=== PATIENT | male | born 1950 | race African-American/Black ===

== ENCOUNTER 2019-03-06 06:48 | Observation (INO) ==
[2019-03-06] MEDS ORDERED: ASPIRIN PO ONE (07:12)
--- NOTE | 2019-03-06 07:12 | PROVIDER DOCUMENTATION ---
HPI-Chest Pain - General Chief Complaint: Shortness of Breath Stated Complaint: SOB / SWELLING Time Seen by Provider: 03/06/19 07:03 Allergies/Adverse Reactions: Patient Allergies Allergy/AdvReac Type Severity Reaction Status Date / Time No Known Allergies Allergy Verified 10/03/18 06:54 Home Medications: Home Medication List Medication Instructions Recorded Confirmed Last Taken Type Metoprolol [Lopressor] 50 mg PO DAILY 04/24/17 03/06/19 10/03/18 06:00 History Atorvastatin Calcium [Lipitor] 80 mg PO DAILY 09/26/18 03/06/19 10/02/18 History Fluticasone/Vilanterol [Breo 1 inh INH DAILY 09/26/18 03/06/19 10/02/18 History Ellipta 200-25 Mcg INH] Losartan/Hydrochlorothiazide 1 dose PO DAILY 09/26/18 03/06/19 10/02/18 History [Losartan-Hctz 50-12.5 mg Tab] Multivitamin with Minerals [One 1 dose PO DAILY 09/26/18 03/06/19 10/02/18 History Daily Adults] Spironolactone 12.5 mg PO DIRECTED 09/26/18 03/06/19 10/02/18 History Albuterol Sulfate [Proair 1 dose INHALATION Q4HR 01/20/19 03/06/19 Unknown History Respiclick] Aspirin [Aspir-Low] 81 mg PO DAILY 01/20/19 03/06/19 Unknown History Pantoprazole Sodium [Protonix] 40 mg PO DAILY 01/20/19 03/06/19 Unknown History Sitagliptin Phosphate [Januvia] 100 mg PO DAILY 01/20/19 03/06/19 Unknown History Methylprednisolone [Medrol Dosepak] 1 tab PO DIRECTED 03/06/19 03/06/19 Unknown History Rivaroxaban [Xarelto] 1 tab PO DAILY 03/06/19 03/06/19 Unknown History - History of Present Illness-CP Nature of Presenting Problem: 68 y/o BM c/o CP and SOB since yesterday that is lt sided and radiates to his lt shoulder. Pt has hx of asthma, CHF and CAD. Pt also notes that he was told that he has blood clot in the lt side of his neck. He has taken nitro this am x2 that he states improved his CP. Location: reports: other (lt lower chest pain) Chest Pain Radiation: reports: no radiation Quality of Pain: reports: aching Severity in ED: mild Onset/Duration: 1-3 hours ago Timing: still present Context/Activities at Onset: reports: light activity Modifying Factors: improves with: movement Associated Symptoms: reports: shortness of breath Nitro Today/Relief: 0.4 mg x 2 (symptoms improved with nitro x2) Aspirin Treatment Today: no aspirin today, provided by ED Prior Chest Pain/Cardiac Workup: reports: heart attack Similar Symptoms Previously?: Yes Recently Seen Here or By Another Healthcare Provider: Yes Review of Systems - Adult - REVIEW OF SYSTEMS - ADULT Constitutional: reports: no symptoms reported, see HPI Eyes: reports: no symptoms reported, see HPI Ears, Nose, Mouth & Throat: reports: no symptoms reported, see HPI Cardiovascular: reports: see HPI, chest pain Respiratory: reports: see HPI, shortness of breath Gastrointestinal: reports: no symptoms reported, see HPI Genitourinary: reports: no symptoms reported, see HPI Musculoskeletal: reports: no symptoms reported, see HPI Integumentary: reports: no symptoms reported, see HPI Neurological: reports: no symptoms reported, see HPI Psychiatric: reports: no symptoms reported, see HPI Endocrine: reports: no symptoms reported, see HPI Hematologic/Lymphatic: reports: no symptoms reported, see HPI Allergic/Immunologic: reports: no symptoms reported, see HPI All Other Systems: Reviewed and Negative Past History - Adult - PAST MEDICAL HISTORY-ADULT Review of Records: reports: Nursing Assessment Review, Medications Reviewed, Social history reviewed & non-contributory. Major Childhood Illnesses: reports: denies history Cardiovascular: reports: CAD, HTN, hyperlipidemia, pacemaker Respiratory: reports: COPD Gastrointestinal: reports: denies history Obstetrical/Gynecological: reports: denies history Genitourinary: reports: denies history Musculoskeletal: reports: denies history Neurological: reports: denies history Endocrine/Immune: reports: Diabetes Other Conditions: reports: denies history - PRIOR SURGERIES/PROCEDURES Surgical/Procedure History: reports: CABG, pacemaker - IMMUNIZATION STATUS Childhood Immunizations: See Nurse Assessment Flu Vaccine: See Nurse Assessment - FAMILY HISTORY Family History: reviewed, not pertinent Physical Exam-General - PHYSICAL EXAM-ADULT Initial Vital Signs Reviewed: Yes - CONSTITUTIONAL General Appearance: appears well, alert, no apparent distress - EYES Eyes: PERRL/EOMI - HEAD, EARS, NOSE, MOUTH & THROAT HENMT: normocephalic/atraumatic, moist mucous membranes - NECK Neck: non-tender, full range of motion, supple, normal inspection - RESPIRATORY Respiratory: chest non-tender, lungs clear, normal breath sounds, no pleuratic chest pain, no respiratory distress, no accessory muscle use - CARDIOVASCULAR Cardiovascular: normal peripheral pulses, regular rate, rhythm, no edema, no gallop, no JVD, no murmur - GASTROINTESTINAL (ABDOMEN) Abdominal Exam: normal bowel sounds, non tender, soft, no organomegaly, no pulsatile mass - LYMPHATIC Lymphatic: no adenopathy - MUSCULOSKELETAL Back Exam: normal inspection, no CVA tenderness, no vertebral tenderness Extremity: normal range of motion, non-tender, normal gait, normal inspection, normal capillary refill - SKIN Integumentary: normal color - 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, grossly normal, no motor/sensory deficits - PSYCHIATRIC Psych/Mental Status: normal mood/affect, normal thought content, normal thought process, oriented x 3 - HEART Score HEART Score: History: Moderately Suspicious HEART Score: ECG: Non-Specific Repolarization Disturbance/LBBB/PM HEART Score: Age: > or = 65 Years HEART Score: Risk Factors for Atherosclerotic Disease: > or = 3 Risk Factors or History of Atherosclerotic Disease HEART Score: Troponin: < or = Normal Limit Total HEART Score:: 6 Progress - PLAN OF CARE/RESULTS Progress/Plan/Lab Results: Vital Signs - 8 hr 03/06/19 06:57 Temperature 98.6 F Pulse Rate 62 Respiratory Rate 26 H Blood Pressure 200/151 O2 Sat by Pulse Oximetry 95 Laboratory Results - last 24 hr 03/06/19 03/06/19 03/06/19 07:20 07:20 07:20 WBC 11.27 H RBC 4.09 L Hgb 11.7 L Hct 35.6 L MCV 87.0 MCH 28.6 MCHC 32.9 L RDW Std Deviation 13.2 Plt Count 227 MPV 10.8 H Immature Gran % (Auto) 0.4 Neut % (Auto) 68.7 Lymph % (Auto) 15.4 L Mayes % (Auto) 14.3 H Eos % (Auto) 1.0 Baso % (Auto) 0.2 Immature Gran # (Auto) 0.04 Neut # (Auto) 7.76 H Lymph # (Auto) 1.73 Mayes # (Auto) 1.61 H Eos # (Auto) 0.11 Baso # (Auto) 0.02 PT INR PTT (Actin FS) D-Dimer, Quantitative 0.51 Sodium Potassium Chloride Carbon Dioxide Anion Gap BUN Creatinine Estimated GFR/1.73 m2 BUN/Creatinine Ratio Glucose Calculated Osmolality Calcium Total Bilirubin AST ALT Alkaline Phosphatase Troponin T 0.012 Pnd-C-Haujzckuswh Pept Total Protein Albumin Globulin Albumin/Globulin Ratio 03/06/19 03/06/19 03/06/19 07:20 07:20 07:20 WBC RBC Hgb Hct MCV MCH MCHC RDW Std Deviation Plt Count MPV Immature Gran % (Auto) Neut % (Auto) Lymph % (Auto) Mayes % (Auto) Eos % (Auto) Baso % (Auto) Immature Gran # (Auto) Neut # (Auto) Lymph # (Auto) Mayes # (Auto) Eos # (Auto) Baso # (Auto) PT 19.4 H INR 1.56 PTT (Actin FS) 39.5 D-Dimer, Quantitative Sodium 138 Potassium 3.7 Chloride 101 Carbon Dioxide 23 L Anion Gap 14 BUN 10 Creatinine 1.1 Estimated GFR/1.73 m2 > 60 BUN/Creatinine Ratio 9 Glucose 196 H Calculated Osmolality 280 Calcium 8.6 L Total Bilirubin 1.40 H AST 23 ALT 28 Alkaline Phosphatase 96 Troponin T Edn-K-Daqcspqssfx Pept 4295 H Total Protein 6.4 Albumin 3.9 Globulin 3.0 Albumin/Globulin Ratio 2.0 Orders Category Date Time Status cxr [CHEST-1 VIEW] [RAD] Stat Exams 03/06/19 07:04 Completed CBC WITH ELECTRONIC DIFF [HEME] Stat Lab 03/06/19 07:20 Completed COMPREHENSIVE METABOLIC PANEL [CHEM] Stat Lab 03/06/19 07:20 Completed D-DIMER [COAG] Stat Lab 03/06/19 07:20 Completed PRO B-NATRIURETIC PEPTIDE Stat Lab 03/06/19 07:20 Completed PROTIME WITH INR [COAG] Stat Lab 03/06/19 07:20 Completed PTT [COAG] Stat Lab 03/06/19 07:20 Completed TROPONIN T Stat Lab 03/06/19 07:20 Completed Aspirin Med 03/06/19 07:12 Discontinued 325 mg PO NOW ONE Furosemide [Lasix] Med 03/06/19 08:32 Discontinued 40 mg .ROUTE .STK-MED ONE Furosemide [Lasix] Med 03/06/19 08:13 Discontinued 40 mg IV NOW ONE Nitroglycerin Sl [Nitroglycerin] Med 03/06/19 07:43 Discontinued 0.4 mg SL NOW ONE Oxygen Device Stat Oth 03/06/19 07:39 Active EKG [EKG] Stat Ther 03/06/19 07:04 Ordered Result Diagrams: 03/06/19 07:20 03/06/19 07:20 - CONSULTS/PCP/HOSPITALIST Notification #1 *Consult/PCP/Hospitalist*: Dr Roger Time Discussed: 08:52 Consult Disposition: Will see in ED, Admit Departure - Departure Date of Disposition Decision: 03/06/19 Time of Disposition Decision: 08:52 DIAGNOSIS: Chest pain, CHF (congestive heart failure) Disposition: ADMITTED INPATIENT 09 Certified Medical Emergency: Emergent Condition: Fair Referrals and Follow-Ups: Domenico Roger MD [Primary Care Provider] - - Critical Care Note This patient required my direct & personal management of CC.: No Attestation - Physician/ JILLIAN Attestation Patient care was provided by Advanced Practice Provider:: No The physician spent face to face time with patient:: Yes Advanced Practice Provider documentation review:: Supervising physician onsite and consulted in the evaluation and care of this patient. The physician did have a face to face encounter with the patient.
[2019-03-06 07:29] LABS: BASO# 0.02 X1000 (0.0-0.2); BASO% 0.2 % (0.0-0.8); EOS# 0.11 X1000 (0.0-0.7); HEMATOCRIT 35.6 % (42.0-52.0); HEMOGLOBIN 11.7 g/dL (14.0-18.0); IMM GRAN# 0.04 X1000 (0.0-0.04); IMM GRAN% 0.4 % (0.0-0.5); LYMPH# 1.73 X1000 (1.2-3.4); LYMPH% 15.4 % (20.5-51.1); MCH 28.6 PG (27-31); MCHC 32.9 g/dL (33-37); MONO# 1.61 X1000 (0.11-0.59); MONO% 14.3 % (1.7-9.3); MPV 10.8 FL (7.4-10.4); NEUT# 7.76 X1000 (1.4-6.5); NEUT% 68.7 % (42.2-75.2); PLT 227 X1000 (130-400); RBC 4.09 XMIL (4.7-6.1); RDW 13.2 % (11.5-14.5); WBC 11.27 X1000 (4.8-10.8)
[2019-03-06] MEDS ORDERED: NITROGLYCERIN SL ONE (07:43)
[2019-03-06 07:49] LABS: AGAP 14; ALBUMIN 3.9 g/dL (3.5-5.0); ALKALINE PHOSPHATASE 96 U/L (32-122); BUN 10 mg/dL (8-22); CALCIUM 8.6 mg/dL (8.8-10.2); CHLORIDE 101 mmol/L (98-107); COSMO 280; CREATININE 1.1 mg/dL (0.7-1.2); ESTIMATED GFR > 60; GLUCOSE 196 mg/dL (70-104); GOT 23 U/L (10-34); GPT 28 U/L (10-44); POTASSIUM 3.7 mmol/L (3.5-5.1); SODIUM 138 mmol/L (136-145); TCO2 23 mmol/L (25-35); TOTAL PROTEIN 6.4 g/dL (6.3-8.3)
[2019-03-06 07:50] LABS: INR 1.56; PROTIME 19.4 Seconds (11.0-16.0)
[2019-03-06 07:51] LABS: PTT 39.5 Seconds (22.3-41.8)
--- NOTE | 2019-03-06 08:12 | Diag Imaging Result Doc PS360 ---
EXAM: CHEST-1 VIEW - 03/06/2019 HISTORY: sob TECHNIQUE: Portable chest one view COMPARISON: 01/20/2019 FINDINGS: Heart size appears borderline enlarged. There are sternal wires from previous surgery and transvenous cardiac pacemaker again seen. The lungs appear clear. There is no pleural effusion or pneumothorax identified. IMPRESSION: Borderline cardiomegaly. No other evidence of acute disease. Electronically signed by Papa Eason 03/06/2019 8:09 AM
[2019-03-06] MEDS ORDERED: LASIX IV ONE (08:13)
[2019-03-06] MEDS ORDERED: LASIX ONE (08:32)
[2019-03-06] MEDS ORDERED: ZOFRAN IV PRN (09:01)
[2019-03-06] MEDS ORDERED: ALDACTONE PO SCH (09:15)
[2019-03-06] MEDS: LOPRESSOR PO SCH (11:16)
[2019-03-06] MEDS: HYDROCHLOROTHIAZIDE PO SCH (11:16)
[2019-03-06] MEDS: XARELTO PO SCH (11:16)
[2019-03-06] MEDS: JANUVIA PO SCH (11:16)
[2019-03-06] MEDS: COZAAR PO SCH (11:16)
[2019-03-06] MEDS: LASIX IV SCH ×2 (11:17→20:49)
--- NOTE | 2019-03-06 11:18 | EKG Report ---
Test Performed on : 03/06/2019 07:09:01 AM Test Reason : sob Blood Pressure : / mmHG Vent. Rate : 060 BPM Atrial Rate : 060 BPM P-R Int : 194 ms QRS Dur : 166 ms QT Int : 518 ms P-R-T Axes : 000 124 -64 degrees QTc Int : 518 ms AV dual-paced rhythm Abnormal ECG When compared with ECG of 20-JAN-2019 14:06, (Unconfirmed) No significant change was found Unconfirmed Result
[2019-03-06] MEDS: TYLENOL PO PRN (20:49)
--- NOTE | 2019-03-07 00:32 | ECHO REPORT ---
ORDER DATE: 03/06/2019 MEASUREMENTS: Septal thickness 1.6, left ventricular internal diameter in diastole 5.6, posterior wall thickness 1.6, left ventricular internal diameter in diastole 3.9, aortic root 3.4, left atrium 5. SUMMARY: 1. Technically difficult study due to limited acoustic window quality. 2. Moderate sclerotic change of aortic valve demonstrated with mildly reduced aortic valve leaflet mobility demonstrated. Peak gradient across the aortic valve is 25 mmHg with a mean gradient of 12 mmHg. Calculated aortic valve area by Doppler is 1.2 to 1.3 cm2, suggesting moderate aortic stenosis. There is mild aortic regurgitation. Mitral and tricuspid valves are without evidence of structural abnormality while pulmonic valve is not well demonstrated. There is moderate mitral regurgitation, mild tricuspid regurgitation, and mild pulmonic insufficiency. Estimated systolic PA pressure by Doppler is 55 to 60 mmHg, suggesting moderate pulmonary hypertension. The aortic root is normal in size. 3. Upper normal left ventricular chamber size with moderate concentric left hypertrophy is demonstrated. Estimated left ventricular ejection fraction appears to be at least 55%. No regional wall motion abnormalities are evident. Left atrium is kkuo-nw-kjzbywwujj enlarged. Right atrium and right ventricle are normal in size with grossly preserved right ventricular systolic function. Pacemaker lead is evident in the right ventricle and right atrium. 4. No pericardial effusion. 5. Appearance of inferior vena cava suggests normal central venous pressure. CONCLUSIONS: 1. Technically difficult study. 2. Moderate aortic stenosis with mild aortic regurgitation. 3. Moderate mitral regurgitation. 4. Mild tricuspid regurgitation with moderate pulmonary hypertension by Doppler. 5. Moderate concentric left hypertrophy with estimated left ventricular ejection fraction at least 55%. 6. Mild to moderate left atrial enlargement. 7. Pacemaker leads in right atrium and right ventricle. cc: MD Domenico Mondragon MD
--- NOTE | 2019-03-07 05:48 | HISTORY AND PHYSICAL ---
CHIEF COMPLAINT: Shortness of breath. HISTORY OF PRESENT ILLNESS: The patient is a 68-year-old male who presented to the ER with some mild chest pain but mainly shortness of breath that radiates to his left shoulder. He has recently been diagnosed with a DVT in his left shoulder area. He has had some swelling there. He has been on Xarelto without problems. He has had increasing work of breathing, increased shortness of breath. He was scheduled outpatient in the next day or 2 for an echo but presented today with increased work of breathing and swelling of his lower extremities. ALLERGIES: No known drug allergies. MEDICATIONS: Lopressor 50 daily, Lipitor 80, Breo Ellipta, losartan/hydrochlorothiazide 50/12.5, multivitamin, spironolactone, ProAir as needed, Januvia, Protonix, and Xarelto due to a recent DVT. REVIEW OF SYSTEMS: Positive increased work of breathing, cough, congestion, increased shortness of breath, dyspnea on exertion. He has had some chest pain with no real radiation. Denies any headaches, blurred vision, change in vision. Denies any focalized numbness, tingling, weakness in his extremities. Denies any dysuria, frequency, or urgency. Does have some swelling in his lower extremities. Notes that he has had dyspnea on exertion and PND, which has been increasing over the past few days. PAST MEDICAL AND SURGICAL HISTORY: Significant for history of coronary artery disease, hypertension, hyperlipidemia. He has had a pacemaker placement. He has history of COPD, diabetes. He has had a CABG in the past several years ago. FAMILY HISTORY: Positive for heart disease. SOCIAL HISTORY: Patient lives at home. He does not smoke or drink. PHYSICAL EXAMINATION: VITAL SIGNS: Reviewed. Temperature 98 degrees, pulse 80s, blood pressure is stable. GENERAL: Patient is awake, alert. He is in mild respiratory distress. He is somewhat ill- appearing compared to his normal. HEENT: Normocephalic. NECK: Supple. CARDIOVASCULAR: Regular rate. CHEST: Clear although decreased breath sounds bilaterally. No crackles. No wheezing. ABDOMEN: Soft, nondistended. EXTREMITIES: Moves all extremities. NEUROLOGIC: No focal changes. SKIN: Warm and dry. No rashes. ASSESSMENT: 1. Congestive heart failure with exacerbation. 2. Chest pain. 3. Diabetes. 4. High cholesterol. 5. Known coronary artery disease. PLAN: We will admit patient to the hospital. We will hold IV fluids. Place him on IV Lasix. Schedule an echo, rule out HI. Further orders as needed. cc: Domenico Roger MD MTDD
[2019-03-07] MEDS: PROTONIX PO SCH (06:05)
[2019-03-07 06:40] LABS: HEMOGLOBIN 12.9 g/dL (14.0-18.0); MCH 28.4 PG (27-31); MCHC 33.1 g/dL (33-37); MCV 85.7 FL (81-99); MPV 11.1 FL (7.4-10.4); RBC 4.55 XMIL (4.7-6.1); RDW 13.1 % (11.5-14.5); WBC 7.43 X1000 (4.8-10.8)
[2019-03-07 06:56] LABS: AGAP 13; ALBUMIN 3.8 g/dL (3.5-5.0); ALKALINE PHOSPHATASE 95 U/L (32-122); BUN 15 mg/dL (8-22); CHLORIDE 98 mmol/L (98-107); COSMO 281; CREATININE 1.1 mg/dL (0.7-1.2); ESTIMATED GFR > 60; GLUCOSE 148 mg/dL (70-104); GOT 22 U/L (10-34); GPT 28 U/L (10-44); POTASSIUM 3.4 mmol/L (3.5-5.1); SODIUM 139 mmol/L (136-145); TCO2 28 mmol/L (25-35); TOTAL PROTEIN 7.2 g/dL (6.3-8.3)
[2019-03-07] MEDS: BREO ELLIPTA 200/25 MCG INH INH SCH (08:15)
[2019-03-07] MEDS ORDERED: LIPITOR PO SCH (09:00)
[2019-03-07] MEDS: XARELTO PO SCH (09:13)
[2019-03-07] MEDS: HYDROCHLOROTHIAZIDE PO SCH (09:13)
[2019-03-07] MEDS: THERA M PLUS PO SCH (09:13)
[2019-03-07] MEDS: COZAAR PO SCH (09:13)
[2019-03-07] MEDS: LOPRESSOR PO SCH (09:13)
[2019-03-07] MEDS: ASPIRIN EC PO SCH (09:13)
[2019-03-07] MEDS: LASIX IV SCH (09:14)
[2019-03-07] MEDS: JANUVIA PO SCH (09:19)
[2019-03-07] MEDS ORDERED: LASIX IV ONE (16:40)
[2019-03-07] MEDS ORDERED: POTASSIUM CHLORIDE 20% LIQUID PO ONE (16:40)
--- NOTE | 2019-03-07 17:08 | CARDIOLOGY CONSULTATION ---
DATE: 03/07/2019 CHIEF COMPLAINT ON PRESENTATION: Shortness of breath. The patient presenting for shortness of breath that has been worsening over the last week or so. The symptom seems to have been waxing and waning but overall worsening. This would occur with minimal exertion. In addition, it seems he may have had some edema but the patient is a poor historian and seems to wax and wane on many of these complaints. He reports some occasional orthopnea. He has a fairly constant chest discomfort in the left upper shoulder area that occurs mainly at rest. There is no exertional component to it. It is fairly localized to the left upper lateral chest/shoulder area. He has had no recent chest pain with exertion. PAST MEDICAL HISTORY: 1. Significant for coronary disease with coronary bypass grafting. His last left heart catheterization appears to have been in 2015 with a distal left main 80% lesion, occluded proximal LAD, occluded mid right coronary. Vein graft to the OM1 is occluded with large amounts of thrombus in the proximal and mid segment. The OM fills with faint collaterals from the vein graft to the right. The vein graft to the RCA is normal with a patent stent. JACKIE to the LAD is normal. 2. Ischemic cardiomyopathy. Last ejection fraction I have on file is 25 to 30 percent from August 2017. 3. History of ICD implantation in December 2017 at [facility]. 4. COPD. 5. Hypertension. 6. Hyperlipidemia. 7. Diabetes. 8. Bilateral carotid disease. SOCIAL HISTORY: The patient lives at home. He does not smoke. No alcohol use. FAMILY HISTORY: Significant for hypertension. REVIEW OF SYSTEMS: A 10 system review of systems is negative. PHYSICAL EXAM: He is afebrile. Heart rate is 60, his blood pressure is 144/65. His I's and O's thus far have been limited in tracking but appears to be -2.7 L.General: He is in no acute distress. HEENT: Oropharynx is moist. Normal dentition. Eye examination shows pink conjunctivae, white sclerae. Neck: Shows no obvious thyromegaly or thyroid tenderness. Cardiovascular: He is in a regular rate and rhythm. He has no obvious murmurs. He has no S3. He has no lower extremity edema. Chest: Sounds relatively clear to auscultation bilaterally. He has no increased work of breathing. Abdomen: Soft, nontender, nondistended. He has no obvious organomegaly. Skin: Warm and dry throughout. Neurological: He is moving all extremities well. He has no lateralizing deficits. PERTINENT DATA: His EKG on presentation shows what appears to be sinus rhythm. He has an AV paced rhythm. His echocardiogram demonstrates moderate with a mean gradient of 12, valve area in the 1.2 to 1.3 range. Pulmonary hypertension is noted with a RV systolic pressure of 55 to 60. His ejection fraction was noted to be 55%. His chest x-ray demonstrates borderline cardiomegaly with no evidence of other acute disease. Lab data shows a white count 7.4, hematocrit 39, platelet count 286,000. His sodium is 139, potassium 3.4, BUN 15, creatinine is 1.1, his bilirubin is 1.5. His cardiac enzymes are negative. His proBNP is 4295. ASSESSMENT: Mr. Singer is a 68-year-old gentleman with heart failure that appears to be predominantly diastolic in nature currently as he appears to have recovered his ejection fraction. PLAN: We will adjust his medications. His blood pressure is significantly elevated. I will increase his spironolactone from 12.5 to 25. I will increase his losartan from [address] him on Lasix 40 IV daily. His last dose of Lasix was on the so we will give him a now dose as well as a dose in the morning. In addition, we will continue him on metoprolol. I have discontinued his hydrochlorothiazide. Laboratories will be checked in the morning including a proBNP and a basic metabolic panel. There is some reported history of a possible DVT in the left upper extremity. I am unclear where this diagnosis comes from as I do not seem to have any objective data detailing it in his chart. Currently, he is on Xarelto. I will defer management of this to his primary physician. cc: Olaf Vilchis MD
[2019-03-07] MEDS: TYLENOL PO PRN (21:09)
--- NOTE | 2019-03-08 00:20 | PROGRESS NOTE ---
DATE: 03/07/2019 SUBJECTIVE: Patient notes he is feeling a lot better today than he was. Denies any fevers, chills. Denies cough, congestion. PHYSICAL EXAMINATION: Vital signs: Temperature 98 degrees, pulse 61, BP 139/58. General: Patient is awake, alert. He is in no respiratory distress. HEENT: Normocephalic. Neck: Supple. Cardiovascular: Regular rate. Chest: Clear. Abdomen: Soft. Extremities: Moves all extremities. Neurologic: No changes. ASSESSMENT: 1. Abnormal echo with multiple valvular abnormalities. He does have some moderate stenosis. I am going to consult Cardiology for their opinion. 2. Diastolic heart failure. 3. Chest pain resolved. 4. Diabetes. 5. Dyspnea on exertion. 6. High cholesterol. 7. Known coronary artery disease. PLAN: Overall, patient has improved. We are going to continue IV Lasix today; hopefully, he can transition to p.o. Lasix tomorrow, and possibly even discharge home with outpatient follow-up. cc: Domenico Roger MD
[2019-03-08] MEDS: PROTONIX PO SCH (06:07)
[2019-03-08 07:35] VITALS: BP 141/73
[2019-03-08 07:35] LABS: CALCIUM 9.2 mg/dL (8.8-10.2); CREATININE 1.2 mg/dL (0.7-1.2); MAGNESIUM 1.7 mg/dL (1.5-2.7); POTASSIUM 3.6 mmol/L (3.5-5.1)
[2019-03-08] MEDS: BREO ELLIPTA 200/25 MCG INH INH SCH (08:06)
[2019-03-08] MEDS: JANUVIA PO SCH (08:29)
[2019-03-08] MEDS: LOPRESSOR PO SCH (08:31)
[2019-03-08] MEDS: XARELTO PO SCH (08:31)
[2019-03-08] MEDS: THERA M PLUS PO SCH (08:31)
[2019-03-08] MEDS: ASPIRIN EC PO SCH (08:32)
[2019-03-08] MEDS ORDERED: LASIX IV SCH (09:00)
[2019-03-08] MEDS ORDERED: ALDACTONE PO SCH (09:00)
[2019-03-08] MEDS ORDERED: COZAAR PO SCH (09:00)
[2019-03-08] MEDS ORDERED: LIPITOR PO SCH (21:00)
--- NOTE | 2019-03-16 03:38 | DISCHARGE SUMMARY ---
ADMISSION DATE: 03/06/2019 DISCHARGE DATE: 03/08/2019 DISCHARGE DIAGNOSIS: 1. Abnormal echo with moderate aortic stenosis, mild aortic regurgitation, moderate mitral regurgitation and moderate pulmonary hypertension with an ejection fraction of 55%. 2. Chest pain, resolved. 3. Diabetes, stable. 4. High cholesterol. 5. Known coronary artery disease. 6. Diastolic congestive heart failure with exacerbation, improved. CONSULTATIONS: None. PROCEDURES: None. BRIEF HOSPITAL COURSE: The patient is a 68-year-old male who presented to the hospital with congestive heart failure symptoms. Thankfully, his cardiac enzymes ruled out for acute NV. Overall, he continued to improve. On discharge, he is awake, alert. He is in no distress. DISPOSITION: Greater than 30 minutes was spent in total care. Patient will be discharged home to follow up outpatient with treatment facility of choice. cc: Domenico Roger MD
== END 2019-03-08 09:44 | disposition home or self-care (01) ==
LOC: P.ED 06:48 → SUATTDRO 09:18 → P.MEDSURG 09:18 → INTOOBSV 09:18 → P.MEDSURG 09:28
PROVIDERS: ATTEND Family Medicine